=== PATIENT | female | born 1945 | race Caucasian/White ===

== ENCOUNTER → 2016-04-15 | Outpatient (CLI) | payer OTHER, MEDICARE | LOC: BHFA 10:45 | PROVIDERS: ATTEND Internal Medicine Cardiovascular Disease | DX: I10 Essential (primary) hypertension (principal) ==

== ENCOUNTER → 2016-07-09 | Outpatient (CLI) | payer OTHER, MEDICARE | LOC: FIMAGING 14:26 | PROVIDERS: ATTEND Internal Medicine | DX: M43.16 Spondylolisthesis, lumbar region (principal); M51.36 Other intervertebral disc degeneration, lumbar region ==

== ENCOUNTER → 2016-08-25 | Outpatient (CLI) | payer OTHER, MEDICARE | LOC: FIMAGING 16:16 | PROVIDERS: ATTEND Physician Assistant Surgical | DX: M50.31 Other cervical disc degeneration, high cervical region (principal) ==

== ENCOUNTER → 2017-01-09 | Outpatient (CLI) | payer OTHER, MEDICARE | LOC: FIMAGING 13:37 | PROVIDERS: ATTEND Internal Medicine | DX: Z12.31 Encounter for screening mammogram for malignant neoplasm of breast (principal) | CPT/HCPCS: G0202 ==

== ENCOUNTER → 2017-07-04 | Outpatient (CLI) | payer OTHER, MEDICARE | LOC: FIMAGING 18:48 | PROVIDERS: ATTEND Podiatrist Primary Podiatric Medicine | DX: M19.071 Primary osteoarthritis, right ankle and foot (principal); M85.671 Other cyst of bone, right ankle and foot; M76.891 Other specified enthesopathies of right lower limb, excluding foot ==

== ENCOUNTER → 2017-10-10 | Outpatient (CLI) | payer OTHER, MEDICARE | LOC: BHFA 13:45 | PROVIDERS: ATTEND Physician Assistant | DX: I42.1 Obstructive hypertrophic cardiomyopathy (principal); I10 Essential (primary) hypertension; I11.9 Hypertensive heart disease without heart failure; E78.00 Pure hypercholesterolemia, unspecified ==

== ENCOUNTER → 2018-01-10 | Outpatient (CLI) | payer OTHER, MEDICARE | LOC: FIMAGING 18:24 | PROVIDERS: ATTEND Physician Assistant Surgical | DX: M51.26 Other intervertebral disc displacement, lumbar region (principal); M51.36 Other intervertebral disc degeneration, lumbar region ==

== ENCOUNTER → 2018-01-21 | Outpatient (CLI) | payer OTHER, MEDICARE | LOC: FIMAGING 13:04 | DX: M16.12 Unilateral primary osteoarthritis, left hip (principal); M25.452 Effusion, left hip; M76.02 Gluteal tendinitis, left hip ==

== ENCOUNTER 2018-03-13 07:35 | Inpatient (IN) | payer OTHER, MEDICARE ==
--- NOTE | 2018-03-12 16:58 | ASMTCASEMG ---
Living Arrangements What is your living Answers: Alone arrangement? Who do you live with? Type Of Residence What kind of residence do Answers: House you live in? Stairs in Home Answers: Yes Notes: two floors with lots of Environment stairs Case Management Evaluation Functional: ADL / IADL Answers: Mobility Issues Performance Deficits Due to: Discharge Plan Comments Coordination Status Comments Notes: Judy lives alone but has her daughters in the area. She would like to go to [facility] rehab after her surgery. Date Signed: 03/12/2018 04:58 PM Electronically Signed By:Shilpa Jarvis RN
--- NOTE | 2018-03-12 17:04 | ASMTCMCOM ---
CM Note CM Note Notes: Judy called me directly to get her questions answered and to let me know [facility] Judy lives alone and feels she cannot adequately care for herself after surgery. Her daughters are in the area and will be around to support her emotionally. Dr. Salmeron approves of this plan. Date Signed: 03/12/2018 05:03 PM Electronically Signed By:Shilpa Jarvis RN
[~2018-03-13 07:35] MED LIST: TRANEXAMIC ACID 3,000 MG/50 ML BAG IRR ONE; ceFAZolin 1 GM/5 ML SYR ONE
[2018-03-13] MEDS ORDERED: DEXAMETHASONE 4 MG/ML VIAL IVP ONE (08:17)
[2018-03-13] MEDS ORDERED: FAMOTIDINE 20 MG TAB PO ONE (08:17)
[2018-03-13] MEDS ORDERED: ceFAZolin 2 GM/DEXTROSE 100 ML IV ONE (08:17)
[2018-03-13] MEDS ORDERED: GABAPENTIN 300 MG CAP PO ONE (08:17)
[2018-03-13] MEDS ORDERED: ACETAMINOPHEN 325 MG TAB PO ONE (08:17)
[2018-03-13] MEDS ORDERED: ONDANSETRON 4 MG/2 ML VIAL IVP ONE (08:17)
[2018-03-13] MEDS ORDERED: LR 1,000 ML IV ONE (08:19)
[2018-03-13] MEDS ORDERED: TRANEXAMIC ACID 1,000 MG in NS 100 ML IV ONE (09:00)
[2018-03-13] MEDS ORDERED: TRANEXAMIC ACID 3,000 MG in NS (SYRINGE) 50 ML IRR ONE (09:00)
[2018-03-13] MEDS ORDERED: TRANEXAMIC ACID 2,000 MG in NS 100 ML IV ONE (09:00)
[2018-03-13] MEDS ORDERED: ROPIVACAINE 0.2% 80 MG, EPINEPHrine 0.2 MG, KETOROLAC TROMETHAMINE 30 MG in SYRINGE 0 ML IU ONE (09:00)
[2018-03-13] MEDS ORDERED: POVIDONE-IODINE 20 ML in SODIUM CL IRRIG SOLUTION 500 ML IRR ONE (09:00)
--- NOTE | 2018-03-13 09:23 | PDANEPAE ---
ANE Past Medical History - Cardiovascular History Hx Hypertension: Yes Hx Arrhythmias: No Hx Chest Pain: No Hx Coronary Artery / Peripheral Vascular Disease: No Hx CHF / Valvular Disease: No Hx Palpitations: No Cardiovascular History Comment: ON COREG - Pulmonary History Hx COPD: No Hx Asthma/Reactive Airway Disease: No Hx Recent Upper Respiratory Infection: Yes Hx Oxygen in Use at Home: Yes O2 in Use at Home (L/minute): 2.L with CPAP Hx Sleep Apnea: Yes Sleep Apnea Screening Result - Last Documented: Positive Pulmonary History Comment: USES CPAP AT NOC - Neurologic History Hx Cerebrovascular Accident: No Hx Seizures: No Hx Dementia: No - Endocrine History Hx Diabetes: No Hypothyroid: No Hyperthyroid: No Obesity: yes, severe - Renal History Hx Renal Disorders: No - Liver History Hx Hepatic Disorders: No - Neurological & Psychiatric Hx Hx Neurological and Psychiatric Disorders: Yes Neurological / Psychiatric History Comment: Restless leg syndrome. 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 BENIGN BREASTS LUMPS REMOVED . COMPLETE HYSTERECTOMY 1998. PARATHYROIDECTOMY 2001. LUMBAR DISECTOMY L5-S1 2007. 06/17/2014 cholecystectomy. 11/26 bilat cataract surgery. left rotator cuff repair ANE Review of Systems Review of Systems: - Exercise capacity Exercise capacity: <4 METS, limited by disability METS (RN): 3 METS ANE Patient History - Allergies Allergies/Adverse Reactions: chlorhexidine Allergy (Severe, Verified 03/01/18 13:32) Rash hydrochlorothiazide Allergy (Verified 03/13/18 08:21) gold sodium thiosulphate Allergy (Uncoded 03/08/18 18:01) Unknown steroids Allergy (Uncoded 07/25/12 19:06) - Home Medications Home Medications: Ascorbic Acid [Vitamin C 500 mg (*)] 500 mg PO DAILY 02/23/18 [Last Taken ] Carvedilol [Coreg (*)] 25 mg PO HS 02/23/18 [Last Taken 03/12/18] Carvedilol [Coreg] 12.5 mg PO DAILY 02/23/18 [Last Taken 03/13/18] Herbals/Supplements -Info Only 1 ea PO DAILY 02/23/18 [Last Taken 03/06/18] Ibuprofen [Advil] 200 mg PO DAILY 02/23/18 [Last Taken 03/06/18] Losartan Potassium [Cozaar 50 mg (*)] 50 mg PO DAILY 02/23/18 [Last Taken ] buPROPion [Wellbutrin] 200 mg PO DAILY 02/23/18 [Last Taken 03/13/18] rOPINIRole HCL [Requip 1mg (*)] 0.5 - 1 mg PO HS 02/23/18 [Last Taken 03/12/18] traMADol [Ultram 50 mg (*)] 25 mg PO BID 02/23/18 [Last Taken 03/12/18] - NPO status NPO Since - Liquids (Date): 03/13/18 NPO Since - Liquids (Time): 06:00 NPO Since - Solids (Date): 03/12/18 NPO Since - Solids (Time): 19:30 - Anes Hx Anes Hx: slow to awaken from anesthesia - Smoking Hx Smoking Status: Never smoked Marijuana use: No - Alcohol Use Alcohol Use: Rarely - Family Anes Hx Family Anes Hx: neg - N/A Family Hx Anesthesia Complications: none ANE Labs/Vital Signs - Vital Signs Blood Pressure: 132/79 Heart Rate: 67 Respiratory Rate: 16 O2 Sat (%): 95 Height: 165.1 cm Weight: 108.862 kg ANE Physical Exam - Airway Neck exam: decreased ROM Mallampati Score: Class 3 Mouth exam: normal dental/mouth exam - Pulmonary Pulmonary: no respiratory distress, reduced air movement - Cardiovascular Cardiovascular: regular rate and rhythym, no murmur, rub, or gallop - ASA Status ASA Status: III ANE Anesthesia Plan Anesthesia Plan: MAC, spinal Total IV Anesthesia: No
[2018-03-13] MEDS ORDERED: PROPOFOL/EMULSION 500 MG/50 ML BOTTLE IV ONE (09:31)
[2018-03-13] MEDS ORDERED: LIDOCAINE 2% 5 ML SDV ONE (09:32)
--- NOTE | 2018-03-13 09:32 | PDHPUP ---
History & Physical Update H&P update statement: This history and physical update is based on an assessment of the patient which was completed after admission or registration (within 24 hours), but prior to the surgery/procedure. H&P update: H&P reviewed & patient examined
[2018-03-13] MEDS ORDERED: fentaNYL 100 MCG/2 ML INJ ONE (10:15)
[2018-03-13] MEDS ORDERED: BUPIVACAINE/DEXTROSE 7.5MG/ML 2 ML SPINAL AMP SP ONE (10:18)
[2018-03-13] MEDS ORDERED: METOCLOPRAMIDE 10 MG/2 ML VIAL ONE ×2 (10:47)
[2018-03-13] MEDS ORDERED: RANITIDINE 50 MG/2 ML VIAL ONE (10:47)
[2018-03-13] MEDS ORDERED: MIDAZOLAM 2 MG/2 ML VIAL ONE (10:53)
[2018-03-13] MEDS ORDERED: NALOXONE HCL 0.4 MG/ML INJ IVP PRN (11:10)
[2018-03-13] MEDS ORDERED: fentaNYL 100 MCG/2 ML INJ IVP PRN (11:10)
[2018-03-13] MEDS ORDERED: ACETAMINOPHEN 500 MG TAB PO PRN (11:10)
[2018-03-13] MEDS ORDERED: HYDROCODONE/APAP 5/325 TAB PO PRN (11:10)
[2018-03-13] MEDS ORDERED: ONDANSETRON 4 MG/2 ML VIAL IVP PRN ×2 (11:10→12:54)
[2018-03-13] MEDS ORDERED: PHENYLEPHRINE HCL 100 MCG/ML SYR IVP PRN (11:10)
[2018-03-13] MEDS ORDERED: LR 500 ML IV PRN (11:10)
[2018-03-13] MEDS ORDERED: ceFAZolin 1 GM/5 ML SYR ONE (11:11)
--- NOTE | 2018-03-13 12:31 | POSTOPPROG ---
Post Op Note Date of Operation: 03/13/18 Surgeon: Gregg Salmeron Aircraft Body Repairer: Jean Anesthesiologist: Dr. Miguel Angel Lara Anesthesia: IV Sedation, Spinal Post-op Diagnosis: 1. Left hip severe degenerative arthritis 2. Obesity Procedure: Left total hip arthroplasty Inf/Abcess present in the surg proc area at time of surgery?: No EBL: 100-500
[2018-03-13] MEDS ORDERED: diphenhydrAMINE 25 MG CAP PO PRN (12:54)
[2018-03-13] MEDS ORDERED: LACTULOSE 20 GM/30 ML UDCUP PO PRN (12:54)
[2018-03-13] MEDS ORDERED: PROMETHAZINE HCL 25 MG/ML INJ IVP PRN (12:54)
[2018-03-13] MEDS ORDERED: PROMETHAZINE HCL 25 MG SUPPR PR PRN (12:54)
[2018-03-13] MEDS ORDERED: METOCLOPRAMIDE 10 MG/2 ML VIAL IVP PRN (12:54)
[2018-03-13] MEDS ORDERED: DIPHENOXYLATE/ATROPINE LOMOTIL 1 TAB PO PRN (12:54)
[2018-03-13] MEDS ORDERED: ONDANSETRON DISINTEGRATING 4 MG TAB PO PRN (12:54)
[2018-03-13] MEDS ORDERED: NS 500 ML IV PRN (12:54)
[2018-03-13] MEDS ORDERED: TEMAZEPAM 15 MG CAP PO PRN (12:54)
[2018-03-13] MEDS ORDERED: BISACODYL 10 MG SUPP PR PRN (12:54)
[2018-03-13] MEDS ORDERED: POLYETHYLENE GLYCOL 3350 17 GM PKT PO PRN (12:54)
[2018-03-13] MEDS ORDERED: MAGNESIUM HYDROXIDE 30 ML UDCUP PO PRN (12:54)
--- NOTE | 2018-03-13 12:59 | POSTANESTH ---
Post Anesthetic Evaluation Cardiovascular Status: Other, See Comment (normal BP sinus bradycardia) Respiratory Status: Normal, Stable Level of Consciousness/Mental Status: Mildly Sleepy, Arousable Pain Control: Adequate, Prn Tx Ordered Nausea/Vomiting Control: Adequate, Prn Tx Ordered Complications Possibly Related to Anesthesia: None Noted
[2018-03-13] MEDS ORDERED: LR 1,000 ML IV SCH (13:00)
--- NOTE | 2018-03-13 13:14 | GOP ---
[f rep st] OPERATIVE REPORT DATE OF OPERATION: 03/13/2018 SURGEON: Gregg Salmeron MD GUEST SERVICES AMBASSADOR: ISIDRA Umanzor CFA. ANESTHESIA: Combination of Marcaine, spinal, and IV sedation. ANESTHESIOLOGIST: Andrei Lara DO. PREOPERATIVE DIAGNOSIS: 1. Left hip severe degenerative arthritis. 2. Obesity. POSTOPERATIVE DIAGNOSIS: 1. Left hip severe degenerative arthritis. 2. Obesity. PROCEDURE PERFORMED: March 13, 2018, a left total hip arthroplasty, ceramic femoral head and highl y cross-linked polyethylene cup liner. FINDINGS: ESTIMATED BLOOD LOSS: About 400 mL. DESCRIPTION OF PROCEDURE: The patient was given 2 g of IV Ancef preoperatively within 60 minutes of surgery. She also received 2000 mg of tranexamic acid. She was placed on the operating room table a nd given spinal anesthesia with Marcaine by Dr. Lara. She was then placed supine and given IV sedation. A West catheter was not used. She wore a GALEN stocking and SCD on the nonoperative leg. She was rolled to the right lateral decubitus position. The position was secured with the pegboard table attachment. An axillary roll was used, and all pressure points were carefully padded. The pat cierra's weight was 109 kg, and her BMI was 39.9. Her size made positioning and exposure very difficul t. Her perineum was isolated with plastic adhesive drapes. The left hip and left lower extremity we re prepped with Betadine. They were draped free using sterile sheets, stockinette, and Ioban plastic adhesive drapes. The World Health Organization time-out was performed to verify the correct surgical side and site and the correct patient identity. The [place] time-out was also performed. I made a 7-8 inch straight oblique posterolateral hip skin incision. The incision had to be larger t mendenhall normal because of her size and the thickness of her subcutaneous tissues. Her subcutaneous tissu es were sharply divided, and hemostasis was obtained using electrocautery. Her subcutaneous fat was approximately 3-4 inches thick. Her fascia edi was identified and split along the axis of its fiber s. I curved posteriorly and proximally, and split the fascia of gluteus omid and bluntly split th e muscle fibers in line with their orientation. The Charnley self-retaining retractor was inserted. Her sciatic nerve was located and protected throughout the procedure. The external rotators and the posterior hip capsule were divided as separate layers at the base of the femoral neck, tagged and re flected posteriorly. She had a chronic partial tear of the gluteus medius. The anterior half was to rn and severely retracted. Posterior attachment was intact. A smooth 8-inch Steinmann pin was inser galen vertically into the ilium superior to the acetabulum. An 8-inch drill bit was inserted verticall y into the greater trochanter and parallel to the first pin. The distance between the two was measur ed for leg length reference. Her femoral head was dislocated posteriorly. Severe degenerative rodriguez es were present on the femoral head. The femoral neck was osteotomized at the appropriate level and inclination. She had a small femoral head. I was careful to preserve all the posterior capsule and most of the anterior capsule. The remnant of her damaged labrum was excised. I prepared the femur first. This allowed me to antitank assault gunner the amount of natural femoral neck anteversion. This in turn allowed me to later determine the correct amount of cup anteversion. She had approxim ately 15 degrees of natural femoral neck anteversion. The canal was opened first laterally with a ankit x chisel. I hand broached sequentially up to size 4. The size 4 Accolade II broach was used as a tr ial stem. I was careful to lateralize adequately. Appropriate retractors were inserted to expose the acetabulum. The acetabulum was reamed sequentiall y up to 49 mm. I selected the 50 mm Tensed Tritanium Trident II cluster hole hemispherical shell. This was tapped securely into place in the proper degree of inclination and anteversion. I used the transverse acetabular ligament and other acetabular bony landmarks to help me properly orient the cup . I inserted a single 30 mm screw through the shell for supplemental fixation. I performed a series of trial reductions to determine length and stability. I concluded that the hig h offset stem with a 32 mm head and a 10-degree lipped liner with the -4 mm neck length gave me the p rajiv combination of good anterior and posterior stability and appropriate lengthening. She was a fe w millimeters short preoperatively and I was intentionally lengthening her. The 10-degree lipped Shantelle X3 highly cross-linked polyethylene liner was inserted and tapped secure ly into place. The Tensed Accolade II stem in size 4 with high offset was inserted press-fit and wa s very tight. I did 1 final trial reduction and confirmed that the -4 mm neck length with a 32 mm he ad was the proper combination. The Shantelle Biolox Delta ceramic head with an outside diameter of 32 mm and a neck length of -4 mm was tapped securely onto the clean trunnion. The acetabulum was irriga galen, cleaned, and the hip was reduced 1 final time. She had excellent anterior and posterior stabili ty and appropriate length. 40 mL of the joint anesthetic cocktail was injected into the capsule, the deep musculature, and subcu taneous tissues around the skin edges. The joint was thoroughly irrigated 1 final time with a dilute Betadine solution. Her sciatic nerve was reinspected and looked unharmed. 50 cc of tranexamic acid was irrigated into the wound and left in place. The external rotators and the posterior hip capsule were repaired in separate layers with #2 FiberWire sutures through drill holes in the greater trocha nter. This provided a strong posterior capsular and external rotator repair. Her fascia edi was cl osed first with 2 interrupted [id number] #2 FiberWire sutures followed by a running #2 barbed Et hicon Stratafix PDO suture. Her subcutaneous tissues were closed in layers with interrupted 2-0 [place] cryl sutures, followed by a running 0 barbed Ethicon Stratafix Monoderm suture. The skin was closed with a running 3-0 barbed Ethicon Stratafix Monoderm subcuticular suture. The skin edges were reappr oximated and sealed with Dermabond glue. The wound was covered with a large Mepilex waterproof dress ing. Sterile Mepilex sacral dressing was applied. A long-leg GALEN stocking and SCD were applied to her left lower extremity. She wore a stocking and SC D on the opposite leg during the procedure. An abduction pillow was placed between her knees. She w as awakened from anesthesia and rolled to the supine position on her [facility]. She was taken to PACU in satisfactory condition. There were no recognized intraoperative complications. COUNTS: The sponge and needle counts were correct on 2 occasions. IMPLANTS: I used a Shantelle Trident II Tritanium hemispherical cluster hole acetabular shell with an outside diameter of 50 mm. I used a 30 mm supplemental fixation screw. The liner was a Tensed X3 1 0-degree lipped highly cross-linked liner with inside diameter 32 mm. The femoral component was a hi gh offset Accolade II stem in a size 4 and press-fit. The femoral head was a Tensed Biolox Delta ce ramic head with a -4 mm neck length and a 32 mm outside diameter. Shaggy Zeng and Marbin Tomlin acted as surgical assistants. Their assistance was a medical necess ity for safe completion of the procedure. Her procedure was unusually difficult because of her size and the depth of the incision. /[id number]/MODL
--- NOTE | 2018-03-13 13:37 | PDMN ---
Medical Necessity Medical necessity: [facility] S560 Hip Arthroplasty, A-2 days, 72 yo s/p L LORI, [facility] IP only
[2018-03-13] MEDS ORDERED: MEPERIDINE 25 MG/0.5 ML AMP ONE (13:38)
[2018-03-13] MEDS ORDERED: MEPERIDINE 25 MG/0.5 ML AMP IV PRN (13:49)
[2018-03-13] MEDS: oxyCODONE IR 5 MG TAB PO PRN (15:39)
[2018-03-13] MEDS: ACETAMINOPHEN 325 MG TAB PO SCH ×2 (17:56→23:55)
[2018-03-13] MEDS: ceFAZolin 2 GM/DEXTROSE 100 ML IV SCH (17:57)
[2018-03-13] MEDS: KETOROLAC 15 MG/1 ML SDV IVP SCH ×2 (18:01→23:55)
[2018-03-13] MEDS: SENNOSIDES/DOCUSATE SODIUM TAB PO SCH (20:30)
[2018-03-13] MEDS: FAMOTIDINE 20 MG TAB PO SCH (20:31)
[2018-03-13] MEDS: ASPIRIN 325 MG TAB PO SCH (20:31)
[2018-03-13] MEDS: CYCLOBENZAPRINE 10 MG TAB PO PRN (20:34)
[2018-03-13] MEDS ORDERED: CARVEDILOL 25 MG TAB PO SCH (21:00)
[2018-03-13] MEDS: traMADol 50 MG TAB PO PRN (23:56)
[2018-03-14] MEDS: ceFAZolin 2 GM/DEXTROSE 100 ML IV SCH (03:21)
[2018-03-14] MEDS: KETOROLAC 15 MG/1 ML SDV IVP SCH (05:10)
[2018-03-14] MEDS: CYCLOBENZAPRINE 10 MG TAB PO PRN (05:10)
[2018-03-14] MEDS: ACETAMINOPHEN 325 MG TAB PO SCH ×3 (05:10→18:07)
[2018-03-14] MEDS: buPROPion 100 MG TAB PO SCH (08:13)
[2018-03-14] MEDS: CARVEDILOL 25 MG TAB PO SCH ×2 (08:13→20:49)
[2018-03-14] MEDS: ASPIRIN 325 MG TAB PO SCH (08:13)
[2018-03-14] MEDS: FERROUS SULFATE 325 MG TAB PO SCH ×2 (08:14→19:09)
[2018-03-14] MEDS: LOSARTAN POTASSIUM 50 MG TAB PO SCH (08:15)
[2018-03-14] MEDS: SENNOSIDES/DOCUSATE SODIUM TAB PO SCH ×2 (08:15→20:51)
[2018-03-14] MEDS: FAMOTIDINE 20 MG TAB PO SCH ×2 (08:15→20:51)
--- NOTE | 2018-03-14 08:59 | SOAPPROG ---
SOAP Progress Note Assessment/Plan: Assessment: Afebrile. Moderate pain. Walked in [place] yesterday. H/H is good. Sciatic nerve intact. Films look good. Plan: Continue PT. OK to take her own meds Needs 3 nights in hospital for SNF discharge. 03/14/18 08:58 Objective: Vital Signs Temp Pulse Resp BP Pulse Ox 36.6 C 72 18 135/69 H 92 03/14/18 07:59 03/14/18 08:13 03/14/18 07:59 03/14/18 08:15 03/14/18 07:59 Laboratory Results 03/14/18 05:12 03/13/18 03/14/18 03/15/18 05:59 05:59 05:59 Intake Total 200 1450 Output Total 850 Balance 200 600 ICD10 Worksheet Patient Problems: Problems Problem Status Onset Obesity (BMI 30-39.9) Acute Osteoarthritis of left hip Acute Diverticulitis Acute
[2018-03-14] MEDS: traMADol 50 MG TAB PO PRN ×2 (12:09→18:07)
--- NOTE | 2018-03-14 13:42 | ASMTCMCOM ---
CM Note CM Note Notes: Pt had her OA of hip surgery. PT/OT rec SNF. Pt still interested in [facility] at d/c. Referral sent to [facility] and Shwetha confirms they can accept pt Monday. D/c plan of care: [facility] Date Signed: 03/14/2018 01:42 PM Electronically Signed By:LILIANA Covarrubias
[2018-03-15] MEDS: traMADol 50 MG TAB PO PRN ×4 (00:02→19:13)
[2018-03-15] MEDS: ACETAMINOPHEN 325 MG TAB PO SCH ×4 (00:02→18:28)
--- NOTE | 2018-03-15 07:39 | SOAPPROG ---
SOAP Progress Note Assessment/Plan: Assessment: Afebrile. Moderate pain. Walked in [place] yesterday. H/H is good. Sciatic nerve intact. Films look good. Plan: Continue PT. OK to take her own meds Needs 3 nights in hospital for SNF discharge. 03/14/18 08:58 03/15/18 07:38 Afebrile. Moderate pain. She is walking in the [place]. No new problems. Due to her obesity and limited activity, I am going to put her on more aggressive DVT prophylaxis with Lovenox. Discharge to [facility] rehab facility on Monday. Objective: Vital Signs Temp Pulse Resp BP Pulse Ox 36.6 C 63 15 102/57 L 95 03/15/18 03:49 03/15/18 03:49 03/15/18 03:49 03/15/18 03:49 03/15/18 03:49 Laboratory Results 03/15/18 05:29 03/14/18 03/15/18 03/16/18 05:59 05:59 05:59 Intake Total 1450 2000 Output Total 850 1750 Balance 600 250 ICD10 Worksheet Patient Problems: Problems Problem Status Onset Obesity (BMI 30-39.9) Acute Osteoarthritis of left hip Acute Diverticulitis Acute
[2018-03-15] MEDS: ASPIRIN 325 MG TAB PO SCH (09:22)
[2018-03-15] MEDS: FERROUS SULFATE 325 MG TAB PO SCH ×2 (09:24→18:29)
[2018-03-15] MEDS: FAMOTIDINE 20 MG TAB PO SCH ×2 (09:24→21:39)
[2018-03-15] MEDS: oxyCODONE IR 5 MG TAB PO PRN ×3 (09:25→21:33)
[2018-03-15] MEDS: buPROPion 100 MG TAB PO SCH (09:26)
[2018-03-15] MEDS: CARVEDILOL 25 MG TAB PO SCH ×2 (09:26→21:35)
[2018-03-15] MEDS: LOSARTAN POTASSIUM 50 MG TAB PO SCH (09:30)
[2018-03-15] MEDS: SENNOSIDES/DOCUSATE SODIUM TAB PO SCH ×2 (09:40→21:39)
[2018-03-15] MEDS: CYCLOBENZAPRINE 10 MG TAB PO PRN (21:34)
[2018-03-16] MEDS: ACETAMINOPHEN 325 MG TAB PO SCH ×3 (00:51→11:51)
[2018-03-16] MEDS: traMADol 50 MG TAB PO PRN ×3 (00:52→14:22)
--- NOTE | 2018-03-16 07:32 | SOAPPROG ---
SOAP Progress Note Assessment/Plan: Assessment: Afebrile. Moderate pain. Walked in [place] yesterday. H/H is good. Sciatic nerve intact. Films look good. Plan: Continue PT. OK to take her own meds Needs 3 nights in hospital for SNF discharge. 03/14/18 08:58 03/15/18 07:38 Afebrile. Moderate pain. She is walking in the [place]. No new problems. Due to her obesity and limited activity, I am going to put her on more aggressive DVT prophylaxis with Lovenox. Discharge to [facility] rehab facility on Monday. 03/16/18 07:31 Afebrile. Moderate pain. She is taking oxycodone regularly. Up and walking. Plan: Discharge to [facility] today. Continue Lovenox 40 mg subcu daily for 21 days. Objective: Vital Signs Temp Pulse Resp BP Pulse Ox 37.0 C 73 17 103/60 94 03/16/18 00:00 03/16/18 00:00 03/16/18 00:00 03/16/18 00:00 03/16/18 00:00 Laboratory Results 03/15/18 05:29 03/15/18 03/16/18 03/17/18 05:59 05:59 05:59 Intake Total 2000 1000 Output Total 1750 Balance 250 1000 ICD10 Worksheet Patient Problems: Problems Problem Status Onset Obesity (BMI 30-39.9) Acute Osteoarthritis of left hip Acute Diverticulitis Acute
[2018-03-16 07:56] VITALS: BP 139/77
--- NOTE | 2018-03-16 07:59 | GDS ---
[f rep st] DISCHARGE SUMMARY ADMISSION DIAGNOSIS: 1. Left hip severe degenerative arthritis. 2. Obesity. DISCHARGE DIAGNOSES: 1. Left hip severe degenerative arthritis. 2. Obesity. OPERATION PERFORMED: 03/13/2018, a left total hip arthroplasty, ceramic femoral head on highly cross -linked polyethylene cup liner. POSTOPERATIVE COMPLICATIONS: None. CONDITION ON DISCHARGE: Improved. DESCRIPTION OF HOSPITAL COURSE: The patient was admitted to the hospital on the morning of surgery. Her admission CBC was normal. The same day, under a combination of Marcaine, spinal, and IV sedatio n, she underwent a left total hip arthroplasty. Postoperatively she was treated with multimodal DVT prophylaxis. Because of her obesity, I felt she was at a slightly higher risk for DVT and she was tr eated with Lovenox. She was seen by Physical Therapy and made gradual progress with ambulation and s tairs. Because she was going to a skilled rehab facility, she required 3 nights in the hospital. At the time of discharge, she was afebrile and was independent walking. DISPOSITION: [facility] She will be 50% weightbearing on the lef t for 3 weeks. Use an abduction pillow in bed for 3 weeks. GALEN stockings for 1 week following surge ry. She has prescriptions for Lovenox, Celebrex, tramadol and oxycodone for pain. She will continue Lovenox for 21 days. I will see her back in the office on April 05, 2018. If there are any prob lems, she is to call me at the office. Copy requested to: [facility] /[id number]/MODL
[2018-03-16] MEDS: buPROPion 100 MG TAB PO SCH (08:27)
[2018-03-16] MEDS: CARVEDILOL 25 MG TAB PO SCH (08:27)
[2018-03-16] MEDS: FERROUS SULFATE 325 MG TAB PO SCH (08:30)
[2018-03-16] MEDS: ASPIRIN 325 MG TAB PO SCH (08:30)
[2018-03-16] MEDS: FAMOTIDINE 20 MG TAB PO SCH (08:31)
[2018-03-16] MEDS: SENNOSIDES/DOCUSATE SODIUM TAB PO SCH (08:34)
[2018-03-16] MEDS: LOSARTAN POTASSIUM 50 MG TAB PO SCH (08:37)
--- NOTE | 2018-03-16 10:34 | PDIAF ---
- Diagnosis Diagnosis: L hip OA Code Status: Full Code - Medication Management Discharge Medications: electronically signed and located in the Home Medication List. PICC Care - Routine: N/A - Orders Services needed: Physical Therapy Isolation Type: None Diet Recommendation: no restrictions on diet Diet Texture: Regular Texture Diet West: Not applicable Iain Stockings Discontinue Date: 1 week Wound Care Instructions: keep clean and dry. You may shower. Activity/Weight Bearing Restrictions: 50% weight bearing on the left side x 3 weeks. Additional Instructions: Patient may use her own home medications. - Follow Up Care Current Providers and Referrals: Hillary Gonzalez [Primary Care Provider] - Gregg Salmeron MD [Medical Doctor] - 04/05/18
--- NOTE | 2018-03-16 12:13 | ASMTLACE ---
LACE Length of stay for Answers: 4-6 days current admission Acuity / Level of Answers: Yes Care: Did the patient have an inpatient admission? Comorbidities - select Answers: Opioid dependence all that apply / Chronic pain Other Notes: HTN # of Emergency department Answers: 0 visits in the last 6 months Score: 12 Date Signed: 03/16/2018 12:13 PM Electronically Signed By:LILIANA Covarrubias
--- NOTE | 2018-03-16 12:16 | ASMTCMCOM ---
CM Note CM Note Notes: Pt medically stable for d/c to [facility]. Shwetha with [facility] scheduled wc transport for 1600. Orders sent in [employer]. MAYELIN Butterfield to call report. Date Signed: 03/16/2018 12:16 PM Electronically Signed By:LILIANA Covarrubias
[2018-03-17] MEDS ORDERED: ENOXAPARIN 40 MG/0.4 ML SYR SC SCH (09:00)
== END 2018-03-16 16:48 | DRG 470 ==
LOC: F3N 07:35
PROVIDERS: ADMIT Orthopaedic Surgery; ATTEND Orthopaedic Surgery
PROC: 0SRB04A Replacement of Left Hip Joint with Ceramic on Polyethylene Synthetic Substitute, Uncemented, Open Approach (ICD-10-PCS; principal; 2018-03-13 09:00)
DX: M16.12 Unilateral primary osteoarthritis, left hip (principal); E66.9 Obesity, unspecified; I10 Essential (primary) hypertension; G47.33 Obstructive sleep apnea (adult) (pediatric); K58.9 Irritable bowel syndrome, unspecified; G47.63 Sleep related bruxism; G25.81 Restless legs syndrome; G62.9 Polyneuropathy, unspecified
CPT/HCPCS: 97110-GP; 97116-GP; 97161-GP; 97165-GO; 97530-GO; 97530-GP; C1713; J0171; J0690; J1100; J1885; J2175; J2250; J2405; J2704; J2765; J2780; J2795; J3010

== ENCOUNTER → 2018-05-20 | Outpatient (CLI) | payer OTHER, MEDICARE | LOC: FIMAGING 09:22 | PROVIDERS: ATTEND Physician Assistant Surgical | DX: M50.31 Other cervical disc degeneration, high cervical region (principal); M50.321 Other cervical disc degeneration at C4-C5 level; M50.322 Other cervical disc degeneration at C5-C6 level; M50.323 Other cervical disc degeneration at C6-C7 level; M50.33 Other cervical disc degeneration, cervicothoracic region; S13.130A Subluxation of C2/C3 cervical vertebrae, initial encounter; S13.140A Subluxation of C3/C4 cervical vertebrae, initial encounter; S13.180A Subluxation of C7/T1 cervical vertebrae, initial encounter; M89.38 Hypertrophy of bone, other site; M99.71 Connective tissue and disc stenosis of intervertebral foramina of cervical region ==

== ENCOUNTER → 2018-05-28 | Outpatient (CLI) | payer OTHER, MEDICARE | LOC: FIMAGING 10:28 | PROVIDERS: ATTEND Internal Medicine | DX: Z12.31 Encounter for screening mammogram for malignant neoplasm of breast (principal) ==

== ENCOUNTER → 2018-06-27 | Outpatient (CLI) | payer OTHER, MEDICARE | LOC: FIMAGING 18:43 | DX: S83.231A Complex tear of medial meniscus, current injury, right knee, initial encounter (principal); M23.91 Unspecified internal derangement of right knee; M67.863 Other specified disorders of tendon, right knee; S83.242A Other tear of medial meniscus, current injury, left knee, initial encounter; M23.92 Unspecified internal derangement of left knee; M71.22 Synovial cyst of popliteal space [Baker], left knee; M67.864 Other specified disorders of tendon, left knee ==